=== PATIENT | male | born 1995 | race Caucasian/White ===

== ENCOUNTER 2017-04-05 17:13 | Emergency (ER) | payer SELFPAY ==
[~2017-04-05] VITALS: Ht 177.8 cm; Wt 75.8 kg
[2017-04-05] MEDS ORDERED: ACULAR 0.5100 DROP/5 RIGHT EYE (18:51)
[2017-04-05 19:16] VITALS: BP 132/70
== END 2017-04-05 19:17 | disposition home or self-care (01) ==
LOC: EME 17:13
DX: H10.11 Acute atopic conjunctivitis, right eye (principal)
CPT/HCPCS: 99281; 99283

== ENCOUNTER 2017-08-10 21:27 | Emergency (ER) | payer SELFPAY ==
[~2017-08-10] VITALS: Ht 177.8 cm; Wt 74.6 kg
[~2017-08-10 21:27] MED LIST: ACULAR 0.5100 DROP/5 RIGHT EYE
[2017-08-10] MEDS ORDERED: KEFLEX500 MG PO (22:09)
[2017-08-10] MEDS ORDERED: ZYRTEC10 M2 PO (22:09)
[2017-08-10 22:39] VITALS: BP 130/71
== END 2017-08-10 22:40 | disposition home or self-care (01) ==
LOC: EME 21:27
DX: L03.115 Cellulitis of right lower limb (principal); L73.9 Follicular disorder, unspecified; T65.891A Toxic effect of other specified substances, accidental (unintentional), initial encounter; Y99.0 Civilian activity done for income or pay
CPT/HCPCS: 99281; 99284